=== PATIENT | female | born 1945 | race Caucasian/White ===

== ENCOUNTER 2023-05-04 08:57 | Outpatient (REF) | payer MEDICARE, MEDICAID, SELFPAY ==
[2023-05-04 19:07] LABS: HCT 38.3 % (36.0-46.0); HGB 12.1 g/dL (11.2-15.7); MCH 29.2 pg (27.0-33.0); MCHC 31.6 % (32.0-36.0); MCV 92 fL (80-95); Platelet Count 185 10^3/uL (130-400); RBC 4.15 10^6/uL (3.93-5.22); RDW 13.8 % (11.7-14.6); RDW-SD 46.6 fL; WBC 9.25 10^3/uL (4.4-10.8)
[2023-05-04 20:15] LABS: ALT 19 U/L (14-59); AST 11 U/L (15-37); Albumin 3.2 g/dL (3.4-5.0); Alkaline Phosphatase 89 U/L (46-116); BUN 14 mg/dL (7-18); Bilirubin, Total 0.4 mg/dL (0.2-1.0); CREATININE 1.3 mg/dL (0.55-1.02); Calcium 8.9 mg/dL (8.5-10.1); Calculated LDL 125 mg/dL (<100); Chloride 106 mmol/L (98-107); Cholesterol 210 mg/dL (<200); Estimated GFR 42.62 (mL/min/1.73m2); Glucose 111 mg/dL (74-106); HDL Cholesterol 56 mg/dL (40-60); Magnesium 1.9 mg/dL (1.8-2.4); Potassium 4.2 mmol/L (3.5-5.1); Sodium 140 mmol/L (136-145); TSH (W/Ref FT4) 2.43 uIU/mL (0.36-3.74); Total Protein 6.4 g/dL (6.4-8.2); Triglyceride 146 mg/dL (<150)
== END 2023-05-04 08:58 | disposition home or self-care (01) ==
LOC: NCHCN 08:57
PROVIDERS: PCP Physician Assistant Medical; Visit Provider Physician Assistant
DX: I10 Essential (primary) hypertension (principal); I25.810 Atherosclerosis of coronary artery bypass graft(s) without angina pectoris; E03.9 Hypothyroidism, unspecified; E78.5 Hyperlipidemia, unspecified; R25.2 Cramp and spasm
CPT/HCPCS: 80053; 80061; 85027; 83735; 84443

== ENCOUNTER 2024-05-10 15:39 | Outpatient (REF) | payer MEDICARE, MEDICAID, SELFPAY ==
[2024-05-10 18:56] LABS: Abs Immature Grans 0.05 10^3/uL (0.0-0.06); Absolute Basophil Count 0.11 10^3/uL (0.0-0.2); Absolute Eosinophil Count 0.61 10^3/uL (0.0-0.7); Absolute Lymphocyte Count 2.32 10^3/uL (1.2-3.4); Basophils % 1.1 %; Eosinophils % 6.2 %; HCT 37.9 % (36.0-46.0); HGB 12.1 g/dL (11.2-15.7); Immature Grans % 0.5 %; Lymphocytes % 23.5 %; MCH 29.3 pg (27.0-33.0); MCHC 31.9 % (32.0-36.0); MCV 92 fL (80-95); Monocytes % 5.1 %; Neutrophils % 63.6 %; Platelet Count 155 10^3/uL (130-400); RBC 4.13 10^6/uL (3.93-5.22); RDW 14.2 % (11.7-14.6); WBC 9.89 10^3/uL (4.4-10.8)
[2024-05-10 19:19] LABS: ALT 16 U/L (14-59); AST 17 U/L (15-37); Albumin 3.1 g/dL (3.4-5.0); Alkaline Phosphatase 89 U/L (46-116); Anion Gap 11.3 mmol/L (3-11); BUN 14 mg/dL (7-18); Bilirubin, Total 0.62 mg/dL (0.2-1.0); CO2 24.7 mmol/L (21.0-32.0); CREATININE 1.4 mg/dL (0.55-1.02); Calcium 8.9 mg/dL (8.5-10.1); Chloride 108 mmol/L (98-107); Estimated GFR 38.75 (mL/min/1.73m2); Glucose 100 mg/dL (74-106); Potassium 4.5 mmol/L (3.5-5.1); Sodium 144 mmol/L (136-145); TSH (W/Ref FT4) 3.39 uIU/mL (0.36-3.74); Total Protein 6.7 g/dL (6.4-8.2)
[2024-05-13 12:15] LABS: Hepatitis C Ab w Rflx HCV PCR Negative (Negative)
== END 2024-05-10 15:40 | disposition home or self-care (01) ==
LOC: NCHCN 15:39
PROVIDERS: PCP Physician Assistant; Visit Provider Physician Assistant
DX: I10 Essential (primary) hypertension (principal)
CPT/HCPCS: 80053; 86803; 84443; 85025

== ENCOUNTER 2024-10-28 14:43 | Outpatient (REF) | payer MEDICARE, MEDICAID, SELFPAY ==
[2024-10-28 19:53] LABS: Bilirubin Color Interference (Negative); Blood Color Interference (Negative); Clarity Cloudy (Clear); Glucose Color Interference mg/dL (Negative); Ketones Color Interference mg/dL (Negative); Leukocyte Esterase Color Interference (Negative); Nitrite Color Interference (Negative); RBC >50 HPF (0-2); Specific Gravity 1.017 (1.005-1.025); Urobilinogen Color Interference mg/dL (Up to 0.2); WBC >50 HPF (0-5)
[2024-10-28 19:54] LABS: C & S Indicated? Yes
== END 2024-10-28 14:44 | disposition home or self-care (01) ==
LOC: NCHCN 14:43
PROVIDERS: PCP Physician Assistant; Visit Provider Nurse Practitioner Family
DX: R30.0 Dysuria (principal); R82.89 Other abnormal findings on cytological and histological examination of urine
CPT/HCPCS: 81003; 81015; 87086

== ENCOUNTER 2024-11-08 22:07 | Outpatient (REF) | payer MEDICARE, MEDICAID, SELFPAY ==
[2024-11-08 19:36] LABS: Abs Immature Grans 0.04 10^3/uL (0.0-0.06); Absolute Basophil Count 0.04 10^3/uL (0.0-0.2); Absolute Eosinophil Count 0.84 10^3/uL (0.0-0.7); Absolute Monocyte Count 0.69 10^3/uL (0.1-0.8); Basophils % 0.3 %; Eosinophils % 6.7 %; HCT 38.8 % (36.0-46.0); HGB 12.3 g/dL (11.2-15.7); Immature Grans % 0.3 %; Lymphocytes % 10.2 %; MCH 29.2 pg (27.0-33.0); MCHC 31.7 % (32.0-36.0); MCV 92 fL (80-95); MPV 12.7 fL (8.0-11.0); Monocytes % 5.5 %; Platelet Count 209 10^3/uL (130-400); RBC 4.21 10^6/uL (3.93-5.22); RDW 13.7 % (11.7-14.6); RDW-SD 46.2 fL; WBC 12.49 10^3/uL (4.4-10.8)
[2024-11-08 19:37] LABS: Absolute Lymphocyte Count 1.27 10^3/uL (1.2-3.4); Absolute Neutrophil Count 9.62 10^3/uL (1.2-6.7)
[2024-11-08 20:06] LABS: PROTEIN 668.6 mg/dL
[2024-11-08 20:09] LABS: ALT 15 U/L (14-59); AST 20 U/L (15-37); Alkaline Phosphatase 94 U/L (46-116); Anion Gap 9.1 mmol/L (3-11); BUN 16 mg/dL (7-18); Bilirubin, Total 0.4 mg/dL (0.2-1.0); CO2 27.9 mmol/L (21.0-32.0); CREATININE 1.4 mg/dL (0.55-1.02); Calcium 9.2 mg/dL (8.5-10.1); Chloride 106 mmol/L (98-107); Estimated GFR 38.75 (mL/min/1.73m2); Glucose 105 mg/dL (74-106); Potassium 4.6 mmol/L (3.5-5.1); Sodium 143 mmol/L (136-145); Total Protein 6.7 g/dL (6.4-8.2); Vitamin D 25 Total 53 ng/mL (30-100)
[2024-11-08 20:10] LABS: COMMENT (LAB VIEW ONLY) 401.67 mg/dL; Prot/Crea Ur Ratio 1.66
== END 2024-11-08 22:08 | disposition home or self-care (01) ==
LOC: NCHCN 22:07
PROVIDERS: PCP Physician Assistant; Visit Provider Physician Assistant
DX: N39.0 Urinary tract infection, site not specified (principal); R82.89 Other abnormal findings on cytological and histological examination of urine
CPT/HCPCS: 80053; 82306; 84156; 84166; 86335; 82565; 85025; 87086

== ENCOUNTER 2024-11-22 12:46 | Outpatient (REF) | payer MEDICARE, MEDICAID, SELFPAY ==
[2024-11-22 18:56] LABS: Bilirubin Negative (Negative); Blood Negative (Negative); Clarity Clear (Clear); Glucose Negative (Negative); Ketones Negative (Negative); Leukocyte Esterase Negative (Negative); Nitrite Negative (Negative); Specific Gravity <= 1.005 (1.005-1.025); Urobilinogen 0.2 mg/dL (Up to 0.2); pH 5.5 (5-8)
[2024-11-25 12:36] LABS: Albumin 56.4 % (55.8-66.1); Albumin g/dL 3.4 g/dL (3.6-5.2)
[2024-11-25 13:01] LABS: ANA Interpretation Negative (Negative)
[2024-11-27 11:18] LABS: Antistrep-O Titer 87 IU/mL (0 - 530)
== END 2024-11-22 12:47 | disposition home or self-care (01) ==
LOC: NCHCN 12:46
PROVIDERS: PCP Physician Assistant; Visit Provider Physician Assistant
DX: N18.9 Chronic kidney disease, unspecified (principal); R80.9 Proteinuria, unspecified
CPT/HCPCS: 81003; 84165; 86038; 86060

== ENCOUNTER 2024-11-25 15:31 | Outpatient (REF) | payer MEDICARE, MEDICAID, SELFPAY ==
[2024-11-25 19:32] LABS: PROTEIN 23.2 mg/dL (0.0-11.9)
[2024-11-25 19:37] LABS: TOTAL PROTEIN,URINE TIMED 139.2 mg/24hr (0.0-149.1); Total Volume 600 ml
== END 2024-11-25 15:32 | disposition home or self-care (01) ==
LOC: NCHCN 15:31
PROVIDERS: PCP Physician Assistant; Visit Provider Physician Assistant
DX: R80.9 Proteinuria, unspecified (principal)
CPT/HCPCS: 81050; 84155

== ENCOUNTER 2025-04-11 06:44 | Day surgery (SDC) | payer MEDICARE, MEDICAID, SELFPAY ==
[2025-04-11] MEDS: Tropicam./Phenyleph. (1/2.5%) 5 ML BTL OD ×3 (07:21→07:34)
[2025-04-11 07:22] VITALS: BP 135/87; PULSE 68; RESP 16; TEMP 36.4; O2SAT 97
--- NOTE | 2025-04-11 07:36 | W.ANESPRE ---
General Info Date of Service Date Performed: 04/11/25 Height: 5 ft 1 in Weight: 62.8 kg Body Mass Index (BMI): 26.2 Surgical Procedure: Operation Date: 04/11/25 08:40 Proposed Procedure Side Surgeon p Cataract Extraction with IOL Implant Right Aden Nur MD Meds Allergies and Home Medications Allergies Allergy/AdvReac Type Severity Reaction Status Date / Time cephalexin (From Keflex) Allergy Skin Rash Verified 04/11/25 07:13 Sulfa (Sulfonamide AdvReac Unknown Other (See Verified 04/11/25 07:13 Antibiotics) Comment) nitrofurantoin (From AdvReac vomiting Verified 04/11/25 07:13 Macrobid) Home Medication ?Medication ?Instructions ?Recorded aspirin 325 mg tablet 325 mg PO DAILY 02/22/22 carvedilol 3.125 mg tablet 3.125 mg PO BID 02/22/22 famotidine 40 mg tablet 40 mg PO DAILY AM 02/22/22 levothyroxine 50 mcg capsule 50 mcg PO DAILY 02/22/22 loperamide 2 mg capsule 2 mg PO Q6H PRN 02/22/22 (Anti-Diarrheal (loperamide)) meloxicam 7.5 mg tablet 7.5 mg PO DAILY 02/22/22 omeprazole 20 mg capsule,delayed 20 mg PO DAILY 02/22/22 release rosuvastatin 40 mg tablet 40 mg PO DAILY 02/22/22 vitamin B complex 1 cap PO DAILY 02/22/22 enalapril maleate 10 mg tablet 10 mg PO DAILY 04/06/23 fluticasone propionate 50 See Rx Instructions .Route 05/23/23 mcg/actuation nasal .COMPLEX #16 grams spray,suspension Current Visit Medications: Current Medications Generic Name Dose Route Start Last Admin Trade Name Freq PRN Reason Stop Dose Admin Acetaminophen 1,000 mg 04/11/25 06:00 Acetaminophen 500 Mg Tab PO 05/11/25 05:59 Q4H PRN PRN Balanced Salt Solution 500 ml 04/11/25 06:00 Balanced Salt Soln.-Plus 500 Ml Bag OP 05/11/25 05:59 DIRECTED [facility] Miscellaneous Medication 0 ml 04/11/25 06:00 Prednisolone 1%, Moxifloxacin 0.5%, Bromfenac 0.09% 5.6ml Btl OD 05/11/25 05:59 DIRECTED [facility] Miscellaneous Medication 0 ml 04/11/25 06:00 04/11/25 07:34 Tropicam./Phenyleph. (1/2.5%) 5 Ml Btl OD 05/11/25 05:59 1 drp DIRECTED [facility] Administration Tetracaine HCl 0 ml 04/11/25 06:00 Tetracaine 0.5% 4 Ml Btl OD 05/11/25 05:59 DIRECTED [facility] PFSH Active Problems Active Problems: Problem Status Onset Code Cortical age-related cataract, right eye Acute H25.011 Nuclear age-related cataract, right eye Acute H25.11 Excessive cerumen in right ear canal Acute H61.21 Sensorineural hearing loss Acute H90.5 Mixed hearing loss Acute H90.8 Bilateral serous otitis media Acute H65.93 Mixed conductive and sensorineural hearing loss of right ear with restricted hearing of left ear Acute H90.A31 Eustachian tube dysfunction Acute H69.80 Medical History Medical History Hypertension Back pain Multiple nevi Hyperlipidemia Ankle joint pain Tonsillar cyst Nicotine dependence Tracheobronchitis Osteoarthritis Neck pain Surgical History Surgical History History of cardiac cath per patient, [place] 2010, [facility] [place] stentsx2 H/O colonoscopy History of cholecystectomy Hx of appendectomy History of hysterectomy Tobacco Smoking/Tobacco Use Status: Current every day Tobacco Type: cigarettes Years smoked: 64 Alcohol Alcohol Intake: never Substance Use Substance use: Never Vital Signs and Lab Results Vital Signs Most Recent Vital Signs in EMR: Most Recent Vital Signs Temp Pulse Resp BP Pulse Ox 36.4 C L 68 16 135/87 97 04/11/25 07:22 04/11/25 07:22 04/11/25 07:22 04/11/25 07:22 04/11/25 07:22 Anesthesia Assessment and Plan Anesthesia History Personal History: No History of Anesthesia Complications Family History: No Family History of Anesthesia Complications Exercise Tolerance Exercise Tolerance: Metabolic Equivalents>4 Pertinent Negatives Pertinent Negatives: No Symptoms of GERD (Omeprazole, Famotidine), No Major Cardiovascular Symptoms or Complaints (Carvedilol, enalapril) and No History of CVA/TIA Cardiac & Pulmonary Exam Cardiac Exam: Normal S1/S2 Heart Sounds Pulmonary Exam: Active Dry Cough Implantable Cardiac Device Does patient have a Pacemaker or an ICD?: No Airway Exam Known Difficult Airway: No Mallampati Class: 2 Mouth Opening: Normal (> 3cm) Thyromental Distance: Greater than 3 cm Neck Range of Motion: Full ROM Neck Circumference: Normal Teeth Condition: Removable Dentures/Plates Upper, Removable Dentures/Plates Lower and Edentulous ASA Classification ASA Score: ASA 3 Emergency Case?: No NPO Status NPO Status: NPO Clears >2 hours, Solids >8 hours Anesthesia Plan Resuscitation Status: Full Code Anesthesia Technique: MAC Anesthesia Airway Planned: Natural Airway Monitors Used: Standard Monitors
[2025-04-11 08:07] VITALS: BMI 26.2
[2025-04-11] MEDS: Povidone-Iodine Ophth 30 ML BTL (08:13)
[2025-04-11] MEDS: Tetracaine 0.5% 4 ML BTL OD (08:14)
[2025-04-11] MEDS: Phenylephrine/Lidocaine (15/10) MG/ML 1 ML VIAL (08:20)
[2025-04-11] MEDS: Lidocaine 1% Pres-Free 5 ML VIAL (08:20)
[2025-04-11] MEDS: Duovisc Viscoelastic System EACH 1 EACH (08:25)
[2025-04-11] MEDS: Balanced Salt Soln.-PLUS 500 ML BAG OP (08:26)
[2025-04-11] MEDS: Moxifloxacin-PF 1 MG/ML VIAL (08:27)
[2025-04-11] MEDS: Prednisolone 1%, Moxifloxacin 0.5%, Bromfenac 0.09% 5.6ML BTL OD (08:30)
--- NOTE | 2025-04-11 08:39 | W.PM.DSUDISC ---
Date of service: 04/11/25 Discharge Plan Disposition Patient Disposition: Home Discharge Details Attending Provider: Aden Nur Primary Care Provider: Shima Muñoz Home Meds and New Rx's Prescriptions: No Action aspirin 325 mg tablet 325 mg PO DAILY carvedilol 3.125 mg tablet 3.125 mg PO BID Rx Instructions: must administer with a meal/food famotidine 40 mg tablet 40 mg PO DAILY AM levothyroxine 50 mcg capsule 50 mcg PO DAILY loperamide [Anti-Diarrheal (loperamide)] 2 mg capsule 2 mg PO Q6H PRN meloxicam 7.5 mg tablet 7.5 mg PO DAILY omeprazole 20 mg capsule,delayed release(DR/EC) 20 mg PO DAILY rosuvastatin 40 mg tablet 40 mg PO DAILY vitamin B complex Capsule 1 cap PO DAILY enalapril maleate 10 mg tablet 10 mg PO DAILY fluticasone propionate 50 mcg/actuation spray,suspension See Rx Instructions .ROUTE .COMPLEX Qty: 16 6RF Dose Instruction: SHAKE LIQUID AND USE 2 SPRAYS IN EACH NOSTRIL DAILY Rx Instructions: SHAKE LIQUID AND USE 2 SPRAYS IN EACH NOSTRIL DAILY Discharge Instructions Stand Alone Forms: DSU Post-Op CataractElida (DSU) Discharge Orders Discharge Orders: Discharge Order (Routine); Ordered 04/11/25 Ordered By: Aden Nur DS: Diagnosis Discharge Diagnosis (1) Cortical age-related cataract, right eye: Status: Resolved (2) Nuclear age-related cataract, right eye: Status: Resolved
[2025-04-11 08:40] VITALS: BP 106/80; PULSE 68; RESP 16; TEMP 36; O2SAT 96
--- NOTE | 2025-04-11 08:40 | ROE_ITS ---
Operative Note Operative Note PRE-OP DIAGNOSIS: Nuclear/cortical cataract, right eye POST-OP DIAGNOSIS: same PROCEDURE: Cataract extraction using phacoemulsification with intraocular lens implant, right eye SURGEON: Aden Nur ANESTHESIA TYPE: Local By Surgeon and MAC Refer to Anesthesia Record ESTIMATED BLOOD LOSS: 0 PATHOLOGY: none sent COMPLICATIONS: None Patient was transported to: same day Patient's condition: stable Implants: Ari Clareon [id number] Indications: Progressive decreased vision due to cataract, right eye Procedure Description: CATARACT SURGERY OPERATIVE REPORT PREOPERATIVE DIAGNOSIS: Nuclear/cortical cataract, right eye POSTOPERATIVE DIAGNOSIS: Same OPERATION: Cataract extraction using phacoemulsification with posterior chamber intraocular lens implant, right eye. IOL: IOL [employer]/Model: Ari Clareon [id number] IOL Power: + 21.5 diopters IOL Serial Number: [id number] Optic Diameter: 6.0mm Haptic/Overall Diameter: 13.0mm PHACO INFO: Ari Centurion Vision System with OZil and Active Fluidics Cumulative Dispersed Energy (CDE): 8.27 seconds SURGEON: Aden Nur MD, DILLON ANESTHESIA: Monitored Anesthesia Care (MAC), with local sub-tenon's anesthetic infiltration COMPLICATIONS: None SPECIMENS: None INDICATIONS FOR PROCEDURE: The patient is a 79-year-old lady with history of diminished visual acuity in her right eye secondary to the development of nuclear/cortical cataract. She is significantly symptomatic that she desires cataract surgery and attempt to improve and maximize her vision. The option of cataract surgery was offered to the patient and she wished to proceed. See office notes for detailed information. PROCEDURE: The correct surgical eye was identified and marked as the right eye and the pupil was dilated in the preoperative area using mydriatics and cycloplegics. The dilated pupil size was 7.0 mm. Oral sedation was administered in the form of an Imprimis MKO Melt (midazolam 3mg/ketamine 25mg/ondansetron 2mg). . The patient was brought to the operating room where cardiopulmonary monitoring was instituted and surgical time-out was performed, confirming the correct operative eye and IOL power. Topical anesthesia was administered and ophthalmic povidone-iodine 5% was instilled into the conjunctival fornices. The giuliana-ocular area was prepped with Betadine 10% solution and draped in the usual sterile fashion for intraocular surgery, including an aperture drape. A Tegaderm transparent film dressing was cut in half and used to cover the lashes and lid margins. Care was taken to sequester the lashes and lid margins under the Tegaderm dressing. A lid speculum was placed between the lids of the operative eye and the Ari LuxOR Revalia operating microscope was maneuvered into position. Sudheer scissors were then used to make a conjunctival buttonhole approximately 6mm posterior to the limbus in the inferonasal quadrant. Blunt dissection was carried out to expose bare sclera, and a blunt-tipped sub-tenon?s anesthesia cannula was introduced and passed posteriorly along the globe where non- preserved plain lidocaine was injected into posterior sub-Tenon?s space. A sideport knife was used to make a paracentesis port. Intraocular phenylephrine/lidocaine was injected into the anterior chamber. The anterior chamber was then filled with viscoelastic. A keratome knife was used to construct a two--plane clear corneal tunnel extending 2.0mm into clear cornea. A flap was raised on the anterior capsule and capsulorhexis forceps were used to complete a continuous curvilinear capsulorhexis of 5.5 mm. Balanced salt solution was then used to perform cortical cleaving hydrodiss ection and nuclear hydrodelineation until the lens could be freely rotated within the capsular bag. The lens nucleus was then disassembled and removed within the capsular bag and iris plane using phacoemulsification. Residual cortical material was removed using the I/A handpiece. The posterior capsule was carefully polished to remove as much residual lens epithelial cells as safely possible. The capsular bag was then inflated and the anterior chamber deepened with cohesive viscoelastic. The lens implant described above was inserted into the capsular bag using the Ari Autonome Injector. A Kuglen hook was used to dial the IOL into position. Residual viscoelastic was then removed first from posterior to the IOL, then from the anterior chamber using the I/A handpiece. The lens implant was noted to center nicely within the capsular bag. The incisions were stromally hydrated, and the anterior chamber was reformed using BSS. Then 0.5cc of moxifloxacin 1.0mg/ml were injected into the capsular bag and anterior chamber. The incisions were checked with a Weck spear and found to be secure. Several drops of ophthalmic povidone-iodine 5% were then applied to the eye followed by two d rops of combination steroid/NSAID/antibiotic solution. The drapes were removed and a clear plastic protective eye shield was placed over the eye. The patient was then returned to Same Day Surgery in stable condition. Date of Procedure: 04/11/25
--- NOTE | 2025-04-11 08:57 | W.ANESPOSTOP ---
Postoperative Evaluation Date, Time and Location Date Performed: 04/11/25 Time Performed: 08:42 Patient Location: Day Surgery Unit Vital Signs Most Recent Imported Vital Signs: Most Recent Vital Signs Temp Pulse Resp BP Pulse Ox 36 C L 68 16 106/80 96 04/11/25 08:40 04/11/25 08:40 04/11/25 08:40 04/11/25 08:40 04/11/25 08:40 Pain Score Most Recent Pain Score: Most Recent Pain Score Pain Level 0 04/11/25 08:40 Assessment Mental Status: Awake (Alert & Oriented to Patient Baseline) Airway and Respiratory Function: Patent airway with normal (patient baseline) respiratory exam Cardiovascular Function: Hemodynamically Stable Hydration Status: Adequately Hydrated Nausea & Vomiting: No Nausea or Vomiting Pain: Pt. Denies Any Pain Peripheral Nerve Block: Other (Local by Dr. Nur)
[2025-04-11 09:08] VITALS: BP 138/76; PULSE 63; RESP 16; TEMP 36.6; O2SAT 96
== END 2025-04-11 09:20 | disposition home or self-care (01) ==
LOC: SUR 06:46
PROVIDERS: PCP Physician Assistant; Visit Provider Ophthalmology
PROC: (CPT 66984; principal; 2025-04-11 08:30)
DX: H25.011 Cortical age-related cataract, right eye (principal); H25.11 Age-related nuclear cataract, right eye
CPT/HCPCS: 66984; 00123; V2632; J2003

== ENCOUNTER 2025-04-25 09:14 | Day surgery (SDC) | payer MEDICARE, MEDICAID, SELFPAY ==
[2025-04-25 09:27] VITALS: BP 170/69; PULSE 54; RESP 16; TEMP 36.2; O2SAT 98
[2025-04-25] MEDS: Tropicam./Phenyleph. (1/2.5%) 5 ML BTL OS ×3 (09:43→09:55)
[2025-04-25 09:57] VITALS: BP 150/80
--- NOTE | 2025-04-25 10:42 | W.ANESPRE ---
General Info Date of Service Date Performed: 04/25/25 Height: 5 ft 1 in Weight: 62.6 kg Body Mass Index (BMI): 26.0 Surgical Procedure: Operation Date: 04/25/25 11:40 Proposed Procedure Side Surgeon p Cataract Extraction with IOL Implant Left Aden Nur MD Actual Procedure Side Surgeon p Cataract Extraction with IOL Implant Left Aden Nur MD Pre-Op Diagnosis Post-Op Diagnosis LEFT CATARACT LEFT CATARACT Meds Allergies and Home Medications Allergies Allergy/AdvReac Type Severity Reaction Status Date / Time cephalexin (From Keflex) Allergy Skin Rash Verified 04/25/25 09:44 Sulfa (Sulfonamide AdvReac Unknown Other (See Verified 04/25/25 09:44 Antibiotics) Comment) nitrofurantoin (From AdvReac vomiting Verified 04/25/25 09:44 Macrobid) Home Medication ?Medication ?Instructions ?Recorded aspirin 325 mg tablet 325 mg PO DAILY 02/22/22 carvedilol 3.125 mg tablet 3.125 mg PO BID 02/22/22 famotidine 40 mg tablet 40 mg PO DAILY AM 02/22/22 levothyroxine 50 mcg capsule 50 mcg PO DAILY 02/22/22 loperamide 2 mg capsule 2 mg PO Q6H PRN 02/22/22 (Anti-Diarrheal (loperamide)) meloxicam 7.5 mg tablet 7.5 mg PO DAILY 02/22/22 omeprazole 20 mg capsule,delayed 20 mg PO DAILY 02/22/22 release rosuvastatin 40 mg tablet 40 mg PO DAILY 02/22/22 vitamin B complex 1 cap PO DAILY 02/22/22 enalapril maleate 10 mg tablet 10 mg PO DAILY 04/06/23 fluticasone propionate 50 See Rx Instructions .Route 05/23/23 mcg/actuation nasal .COMPLEX #16 grams spray,suspension Current Visit Medications: Current Medications Generic Name Dose Route Start Last Admin Trade Name Freq PRN Reason Stop Dose Admin Acetaminophen 1,000 mg 04/25/25 06:00 Acetaminophen 500 Mg Tab PO 05/25/25 05:59 Q4H PRN PRN Balanced Salt Solution 500 ml 04/25/25 06:00 Balanced Salt Soln.-Plus 500 Ml Bag OP 05/25/25 05:59 DIRECTED [facility] Miscellaneous Medication 0 ml 04/25/25 06:00 Prednisolone 1%, Moxifloxacin 0.5%, Bromfenac 0.09% 5.6ml Btl OS 05/25/25 05:59 DIRECTED [facility] Miscellaneous Medication 0 ml 04/25/25 06:00 04/25/25 09:55 Tropicam./Phenyleph. (1/2.5%) 5 Ml Btl OS 05/25/25 05:59 1 drp DIRECTED [facility] Administration Tetracaine HCl 0 ml 04/25/25 06:00 Tetracaine 0.5% 4 Ml Btl OS 05/25/25 05:59 DIRECTED [facility] PFSH Active Problems Active Problems: Problem Status Onset Code S/P cataract extraction and insertion of intraocular lens Acute Z98.49, Z96.1 Cortical age-related cataract, left eye Acute H25.012 Nuclear age-related cataract, left eye Acute H25.12 Cortical age-related cataract, right eye Resolved H25.011 Nuclear age-related cataract, right eye Resolved H25.11 Excessive cerumen in right ear canal Acute H61.21 Sensorineural hearing loss Acute H90.5 Mixed hearing loss Acute H90.8 Bilateral serous otitis media Acute H65.93 Mixed conductive and sensorineural hearing loss of right ear with restricted hearing of left ear Acute H90.A31 Eustachian tube dysfunction Acute H69.80 Medical History Medical History Hypertension Back pain Multiple nevi Hyperlipidemia Ankle joint pain Tonsillar cyst Nicotine dependence Tracheobronchitis Osteoarthritis Neck pain Medical History Comments:: 4 Cigarettes this morning Surgical History Surgical History History of cardiac cath per patient, [place] 2010, [facility] [place] placed stentsx2 H/O colonoscopy History of cholecystectomy Hx of appendectomy History of hysterectomy Tobacco Smoking/Tobacco Use Status: Current every day Tobacco Type: cigarettes Years smoked: 64 Passive smoking exposure: Yes Alcohol Alcohol Intake: never Substance Use Substance use: Never Substance use type: does not use Vital Signs and Lab Results Vital Signs Most Recent Vital Signs in EMR: Most Recent Vital Signs Temp Pulse Resp BP Pulse Ox 36.2 C L 54 L 16 150/80 H 98 04/25/25 09:27 04/25/25 09:27 04/25/25 09:27 04/25/25 09:57 04/25/25 09:27 Anesthesia Assessment and Plan Anesthesia History Personal History: No History of Anesthesia Complications Family History: No Family History of Anesthesia Complications Exercise Tolerance Exercise Tolerance: Metabolic Equivalents>4 Pertinent Negatives Pertinent Negatives: No Symptoms of GERD and No Major Cardiovascular Symptoms or Complaints Cardiac & Pulmonary Exam Cardiac Exam: Normal S1/S2 Heart Sounds Pulmonary Exam: Other (Dry smokers cough) Implantable Cardiac Device Does patient have a Pacemaker or an ICD?: No Airway Exam Known Difficult Airway: No Mallampati Class: 2 Mouth Opening: Normal (> 3cm) Thyromental Distance: Greater than 3 cm Neck Range of Motion: Full ROM Neck Circumference: Normal Teeth Condition: Removable Dentures/Plates Upper, Removable Dentures/Plates Lower and Edentulous ASA Classification ASA Score: ASA 3 Emergency Case?: No NPO Status NPO Status: NPO Clears >2 hours, Solids >8 hours Anesthesia Plan Resuscitation Status: Full Code Anesthesia Technique: MAC Anesthesia Airway Planned: Natural Airway Monitors Used: Standard Monitors
[2025-04-25 10:44] VITALS: BMI 26.0
[2025-04-25] MEDS: Povidone-Iodine Ophth 30 ML BTL (10:57)
[2025-04-25] MEDS: Tetracaine 0.5% 4 ML BTL OS (10:57)
[2025-04-25] MEDS: Balanced Salt Soln.-PLUS 500 ML BAG OP (11:04)
[2025-04-25] MEDS: Phenylephrine/Lidocaine (15/10) MG/ML 1 ML VIAL (11:04)
[2025-04-25] MEDS: Lidocaine 1% Pres-Free 5 ML VIAL (11:05)
[2025-04-25] MEDS: Duovisc Viscoelastic System EACH 1 EACH (11:05)
[2025-04-25] MEDS: Moxifloxacin-PF 1 MG/ML VIAL (11:22)
[2025-04-25] MEDS: Prednisolone 1%, Moxifloxacin 0.5%, Bromfenac 0.09% 5.6ML BTL OS (11:24)
--- NOTE | 2025-04-25 11:32 | W.PM.DSUDISC ---
Date of service: 04/25/25 Discharge Plan Disposition Patient Disposition: Home Discharge Details Attending Provider: Aden Nur Primary Care Provider: Shima Muñoz Home Meds and New Rx's Prescriptions: No Action aspirin 325 mg tablet 325 mg PO DAILY carvedilol 3.125 mg tablet 3.125 mg PO BID Rx Instructions: must administer with a meal/food famotidine 40 mg tablet 40 mg PO DAILY AM levothyroxine 50 mcg capsule 50 mcg PO DAILY loperamide [Anti-Diarrheal (loperamide)] 2 mg capsule 2 mg PO Q6H PRN meloxicam 7.5 mg tablet 7.5 mg PO DAILY omeprazole 20 mg capsule,delayed release(DR/EC) 20 mg PO DAILY rosuvastatin 40 mg tablet 40 mg PO DAILY Patient Comments: M-W-F vitamin B complex Capsule 1 cap PO DAILY enalapril maleate 10 mg tablet 10 mg PO DAILY fluticasone propionate 50 mcg/actuation spray,suspension See Rx Instructions .ROUTE .COMPLEX Qty: 16 6RF Dose Instruction: SHAKE LIQUID AND USE 2 SPRAYS IN EACH NOSTRIL DAILY Rx Instructions: SHAKE LIQUID AND USE 2 SPRAYS IN EACH NOSTRIL DAILY Discharge Instructions Stand Alone Forms: DSU Post-Op CataractElida (DSU) Discharge Orders Discharge Orders: Discharge Order (Routine); Ordered 04/25/25 Ordered By: Aden Nur DS: Diagnosis Discharge Diagnosis (1) Cortical age-related cataract, left eye: Status: Resolved (2) Nuclear age-related cataract, left eye: Status: Resolved
--- NOTE | 2025-04-25 11:33 | ROE_ITS ---
Operative Note Operative Note PRE-OP DIAGNOSIS: Nuclear/cortical cataract, left eye POST-OP DIAGNOSIS: same PROCEDURE: Cataract extraction using phacoemulsification with intraocular lens implant, left eye SURGEON: Aden Nur ANESTHESIA TYPE: Local By Surgeon and MAC Refer to Anesthesia Record PATHOLOGY: none sent COMPLICATIONS: None Patient was transported to: same day Patient's condition: stable Implants: Ari Clareon [id number] Indications: Progressive decreased vision due to cataract, left eye Procedure Description: CATARACT SURGERY OPERATIVE REPORT PREOPERATIVE DIAGNOSIS: Nuclear/cortical cataract, left eye POSTOPERATIVE DIAGNOSIS: Same OPERATION: Cataract extraction using phacoemulsification with posterior chamber intraocular lens implant, left eye. IOL: IOL [employer] Instructor/Model: Ari Clareon [id number] IOL Power: + 22.0 diopters IOL Serial Number: [id number] Optic Diameter: 6.0mm Haptic/Overall Diameter: 13.0mm PHACO INFO: Ari Centurion Vision System with OZil and Active Fluidics Cumulative Dispersed Energy (CDE): 12.40 seconds SURGEON: Aden Nur MD, DILLON ANESTHESIA: Monitored Anesthesia Care (MAC), with local sub-tenon's anesthetic infiltration COMPLICATIONS: None SPECIMENS: None INDICATIONS FOR PROCEDURE: The patient is a 79-year-old lady with history of diminished visual acuity in her left eye secondary to the development of nuclear/cortical cataract. She has already undergone cataract surgery in her right eye and is doing well postoperatively. She now presents for cataract surgery in the left eye. See office notes for detailed information. PROCEDURE: The correct surgical eye was identified and marked as the left eye and the pupil was dilated in the preoperative area using mydriatics and cycloplegics. The dilated pupil size was 7.0 mm. Oral sedation was administered in the form of an Imprimis MKO Melt (midazolam 3mg/ketamine 25mg/ondansetron 2mg). . The patient was brought to the operating room where cardiopulmonary monitoring was instituted and surgical time-out was performed, confirming the correct operative eye and IOL power. Topical anesthesia was administered and ophthalmic povidone-iodine 5% was instilled into the conjunctival fornices. The giuliana-ocular area was prepped with Betadine 10% solution and draped in the usual sterile fashion for intraocular surgery, including an aperture drape. A Tegaderm transparent film dressing was cut in half and used to cover the lashes and lid margins. Care was taken to s equester the lashes and lid margins under the Tegaderm dressing. A lid speculum was placed between the lids of the operative eye and the Ari LuxOR Revalia operating microscope was maneuvered into position. Sudheer scissors were then used to make a conjunctival buttonhole approximately 6mm posterior to the limbus in the inferonasal quadrant. Blunt dissection was carried out to expose bare sclera, and a blunt-tipped sub-tenon?s anesthesia cannula was introduced and passed posteriorly along the globe where non- preserved plain lidocaine was injected into posterior sub-Tenon?s space. A sidep ort knife was used to make a paracentesis port. Intraocular phenylephrine/lidocaine was injected into the anterior chamber. The anterior chamber was then filled with viscoelastic. A keratome knife was used construct a two-plane clear corneal tunnel extending 2.0mm into clear cornea. A flap was raised on the anterior capsule and capsulorhexis forceps were used to complete a continuous curvilinear capsulorhexis of 5.0 mm. Balanced salt solution was then used to perform cortical cleaving hydrodissection and nuclear hydrodelineation until the lens could be freely rotated within the capsular bag. The lens nucleus was then disassembled and removed within the capsular bag and iris plane using phacoemulsification. Residual cortical material was removed using the irrigation/aspiration handp iece. The posterior capsule was carefully polished to remove as much residual lens epithelial cells as safely possible. The capsular bag was then inflated and the anterior chamber deepened with viscoelastic. The lens implant described above was inserted into the capsular bag using the Ari Autonome Injector. A Kuglen hook was used to dial the IOL into position. Residual viscoelastic was then removed first from posterior to the IOL, then from the anterior chamber using the I/A handpiece. The lens implant was noted to center nicely within the capsular bag. The incisions were stromally hydrated, and the anterior chamber was reformed using BSS. Then 0.5cc of moxifloxacin 1.0mg/ml were injected into the capsular bag and anterior chamber. The incisions were checked with a Weck spear and found to be secure. Several drops of ophthalmic povidone-iodine 5% were then applied to the eye followed by two drops of combination steroid/NSAID/antibiotic solution. The drapes were removed and a clear plastic protective eye shield was placed over the eye. The patient was then returned to Same Day Surgery in stable condition. Date of Procedure: 04/25/25
[2025-04-25 11:35] VITALS: BP 140/74; PULSE 54; RESP 16; TEMP 36.7; O2SAT 97
--- NOTE | 2025-04-25 11:43 | W.ANESPOSTOP ---
Postoperative Evaluation Date, Time and Location Date Performed: 04/25/25 Time Performed: 11:40 Patient Location: Day Surgery Unit Vital Signs Most Recent Imported Vital Signs: Most Recent Vital Signs Temp Pulse Resp BP Pulse Ox 36.7 C 54 L 16 140/74 97 04/25/25 11:35 04/25/25 11:35 04/25/25 11:35 04/25/25 11:35 04/25/25 11:35 Pain Score Most Recent Pain Score: Most Recent Pain Score Pain Level 0 04/25/25 11:35 Assessment Mental Status: Awake (Alert & Oriented to Patient Baseline) Airway and Respiratory Function: Patent airway with normal (patient baseline) respiratory exam Cardiovascular Function: Hemodynamically Stable Hydration Status: Adequately Hydrated Nausea & Vomiting: No Nausea or Vomiting Pain: Pt. Denies Any Pain Peripheral Nerve Block: Patient did not receive a nerve block
[2025-04-25 12:01] VITALS: BP 148/71; PULSE 60; RESP 16; TEMP 36.5; O2SAT 97
== END 2025-04-25 12:02 | disposition home or self-care (01) ==
LOC: SUR 09:14
PROVIDERS: PCP Physician Assistant; Visit Provider Ophthalmology
PROC: (CPT 66984; principal; 2025-04-25 11:30)
DX: H25.012 Cortical age-related cataract, left eye (principal); H25.12 Age-related nuclear cataract, left eye; Z98.41 Cataract extraction status, right eye
CPT/HCPCS: 66984; 00123; V2632; J2003